=== PATIENT | male | born 1965 | race Caucasian/White ===

== ENCOUNTER 2022-08-29 10:12 | Outpatient (CLI) | payer OTHER, SELFPAY ==
--- NOTE | ~2022-08-29 | XR_ITS ---
AP and oblique views of the right ribs, and PA and lateral chest radiographs Clinical History: Pain Findings: There are minimally displaced fractures of the right fifth, sixth, and seventh ribs lateral ly.. Lungs are clear, without focal consolidation or pleural effusion. Cardiomediastinal contour is w ithin normal limits. Soft tissues are unremarkable. Impression: Minimally displaced fractures of the right fifth, sixth, and seventh ribs laterally/anterolaterally. Clear lungs. No pneumothorax. Reviewed, dictated and finalized at location . Impression: Minimally displaced fractures of the right fifth, sixth, and seventh ribs later ally/anterolaterally. Clear lungs. No pneumothorax.
== END 2022-08-29 10:13 | disposition home or self-care (01) ==
PROVIDERS: PCP Physician Assistant; Visit Provider Physician Assistant
DX: R07.81 Pleurodynia (principal); S22.41XA Multiple fractures of ribs, right side, initial encounter for closed fracture
CPT/HCPCS: 71046; 71100